=== PATIENT | male | born 1945 | race Native Hawaiian/Other Pacific Islander ===

== ENCOUNTER 2022-04-04 12:47 | Outpatient (CLI) | payer OTHER | END 2022-04-04 19:06 | disposition home or self-care (01) | LOC: CT 12:47 | PROVIDERS: ATTEND Obstetrics & Gynecology Obstetrics | DX: I71.2 Thoracic aortic aneurysm, without rupture (principal) | CPT/HCPCS: 36415; 82565; 84520; Q9963 ==

== ENCOUNTER → 2022-06-06 | Outpatient (CLI) | payer OTHER | LOC: RAD 16:30 | PROVIDERS: ATTEND Orthopaedic Surgery | DX: M25.551 Pain in right hip (principal) ==

== ENCOUNTER 2022-10-17 11:03 | Outpatient (CLI) | payer OTHER | END 2022-10-17 19:38 | disposition home or self-care (01) | LOC: RAD 11:03 | PROVIDERS: ATTEND Orthopaedic Surgery | DX: M25.551 Pain in right hip (principal) ==

== ENCOUNTER 2023-01-16 14:21 | Outpatient (CLI) | payer OTHER | END 2023-01-16 20:52 | disposition home or self-care (01) | LOC: RAD 14:21 | PROVIDERS: ATTEND Orthopaedic Surgery | DX: M25.551 Pain in right hip (principal) ==